=== PATIENT | female | born 1960 | race Caucasian/White ===

== ENCOUNTER 2023-02-28 12:27 | Emergency (ER) | payer MEDICARE, MEDICAID ==
[2023-02-28] MEDS ORDERED: Take Home: Doxycycline 100 MG Cap, 4 Cap Pack PO ONE (13:47)
== END 2023-02-28 13:59 | disposition home or self-care (01) ==
LOC: VM.ED 12:27
DX: J40 Bronchitis, not specified as acute or chronic (principal); Z88.0 Allergy status to penicillin
CPT/HCPCS: 71046; 99284; A9270; 99283